=== PATIENT | female | born 1940 | race Caucasian/White ===

== ENCOUNTER → 2017-03-22 | Outpatient (REF) | payer MEDICARE, OTHER ==
[~2017-03-22] MED LIST: /MOXI40TA PO; ASPI81TA21 PO; CRES5TAB PO; LATA0.00 OU; LOSA50TA20 PO; MULTTAB4 PO; NEXI40GR PO; TYLE325T5 PO
== END ==
LOC: M LAB REF 16:32
PROVIDERS: ATTEND Internal Medicine Gastroenterology
DX: R19.7 Diarrhea, unspecified (principal)

== ENCOUNTER → 2017-03-25 | Outpatient (REF) | payer MEDICARE, OTHER | LOC: M LAB REF 17:06 | PROVIDERS: ATTEND Internal Medicine Gastroenterology | DX: R19.7 Diarrhea, unspecified (principal) ==

== ENCOUNTER → 2017-04-30 | Outpatient (REF) | payer MEDICARE, OTHER ==
[2017-04-30 14:18] LABS: MEAN CORPUSCULAR HEMOGLOBIN 29.6 pg (27.0-33.0); MEAN CORPUSCULAR HGB CONC 32.4 g/dl (32.0-36.5); MEAN CORPUSCULAR VOLUME 91.3 fl (80.0-96.0); PLATELET COUNT, AUTOMATED 317 10^3/uL (150-450); RED CELL DISTRIBUTION WIDTH 14.1 % (11.5-14.5); WHITE BLOOD COUNT 7.3 10^3/uL (4.0-10.0)
[2017-04-30 14:38] LABS: ALBUMIN 4.3 GM/DL (3.2-5.2); ALBUMIN/GLOBULIN RATIO 1.43 (1.00-1.93); ALKALINE PHOSPHATASE 80 U/L (45-117); ALT/SGPT 23 U/L (12-78); ANION GAP 8 MEQ/L (8-16); AST/SGOT 15 U/L (7-37); BILIRUBIN,TOTAL 0.8 MG/DL (0.2-1.0); BLOOD UREA NITROGEN 16 MG/DL (7-18); CALCIUM LEVEL 9.5 MG/DL (8.8-10.2); CARBON DIOXIDE LEVEL 28 MEQ/L (21-32); CHLORIDE LEVEL 103 MEQ/L (98-107); CREATININE FOR GFR 1.01 MG/DL (0.55-1.02); GLOMERULAR FILTRATION RATE 56.9 (>39); GLUCOSE, FASTING 100 MG/DL (83-110); MAGNESIUM LEVEL 2.1 MG/DL (1.8-2.4); POTASSIUM SERUM 3.4 MEQ/L (3.5-5.1); SODIUM LEVEL 139 MEQ/L (136-145); TOTAL PROTEIN 7.3 GM/DL (6.4-8.2)
[2017-05-04 00:06] LABS: ANTI-SACCHAROMYCES CEREV. IgA <20.0 Units (0.0-24.9); ANTI-SACCHAROMYCES CEREV. IgG <20.0 Units (0.0-24.9)
== END ==
LOC: M LABNEURO 13:30
PROVIDERS: ATTEND Internal Medicine Gastroenterology
DX: E55.9 Vitamin D deficiency, unspecified (principal); K21.9 Gastro-esophageal reflux disease without esophagitis; R19.7 Diarrhea, unspecified

== ENCOUNTER → 2017-05-28 | Outpatient (REF) | payer MEDICARE, OTHER ==
[2017-05-28 18:12] LABS: ALBUMIN 4.1 GM/DL (3.2-5.2); ALBUMIN/GLOBULIN RATIO 1.37 (1.00-1.93); BILIRUBIN,DIRECT 0.2 MG/DL (0.0-0.2); BILIRUBIN,TOTAL 0.7 MG/DL (0.2-1.0); TOTAL PROTEIN 7.1 GM/DL (6.4-8.2)
== END ==
LOC: M LABNEURO 14:02
PROVIDERS: ATTEND Internal Medicine Gastroenterology
DX: R19.7 Diarrhea, unspecified (principal); K57.30 Diverticulosis of large intestine without perforation or abscess without bleeding; R07.9 Chest pain, unspecified; K22.8 Other specified diseases of esophagus

== ENCOUNTER → 2017-06-07 | Outpatient (CLI) | payer MEDICARE, OTHER | LOC: M RAD 07:44 | DX: R19.7 Diarrhea, unspecified (principal) | CPT/HCPCS: J2805 ==

== ENCOUNTER → 2017-06-17 | Outpatient (CLI) | payer MEDICARE, OTHER | LOC: M RAD 07:50 | DX: R19.7 Diarrhea, unspecified (principal); R10.84 Generalized abdominal pain; K52.9 Noninfective gastroenteritis and colitis, unspecified | CPT/HCPCS: 93975 ==

== ENCOUNTER → 2017-08-21 | Outpatient (CLI) | payer MEDICARE, OTHER | LOC: M RAD 08:49 | DX: M46.90 Unspecified inflammatory spondylopathy, site unspecified (principal) | CPT/HCPCS: 72100 ==

== ENCOUNTER → 2017-08-27 | Outpatient (CLI) | payer MEDICARE, OTHER ==
[~2017-08-27] MED LIST changes: -/MOXI40TA PO; -ASPI81TA21 PO; -CRES5TAB PO; +ISOVUE-370 76% 100ML VIAL (Q9967) As Ordered; -LATA0.00 OU; -LOSA50TA20 PO; -MULTTAB4 PO; -NEXI40GR PO; -TYLE325T5 PO
== END ==
LOC: M RAD 08:04
DX: R10.9 Unspecified abdominal pain (principal); R19.7 Diarrhea, unspecified
CPT/HCPCS: Q9967

== ENCOUNTER → 2017-08-28 | Outpatient (REF) | payer MEDICARE, OTHER ==
[2017-08-28 14:10] LABS: INR 0.92; PROTHROMBIN TIME 12.4 SECONDS (12.4-14.5)
[2017-08-28 14:11] LABS: PARTIAL THROMBOPLASTIN TIME 32.7 SECONDS (26.8-37.9)
== END ==
LOC: M LAB REF 12:59
DX: R19.09 Other intra-abdominal and pelvic swelling, mass and lump (principal)
CPT/HCPCS: 85610

== ENCOUNTER → 2017-08-29 | Outpatient (CLI) | payer MEDICARE, OTHER ==
[~2017-08-29] MED LIST changes: +ACETAMINOPHEN 325 MG TAB As Ordered; -ISOVUE-370 76% 100ML VIAL (Q9967) As Ordered; +LIDOCAINE 1% MDV 20ML VIAL As Ordered
== END ==
LOC: M RADPRO 13:20
DX: R19.09 Other intra-abdominal and pelvic swelling, mass and lump (principal); C77.2 Secondary and unspecified malignant neoplasm of intra-abdominal lymph nodes; Z79.82 Long term (current) use of aspirin; Z79.899 Other long term (current) drug therapy; Z88.8 Allergy status to other drugs, medicaments and biological substances
CPT/HCPCS: 49180

== ENCOUNTER 2017-08-30 17:30 | Emergency (ER) | payer MEDICARE, OTHER ==
[2017-08-30] MEDS: ONDANSETRON 4MG/2ML VIAL (J2405) IV (19:29)
[2017-08-30] MEDS: MORPHINE 4 MG/ML 1ML VIAL (J2270) IV (19:31)
[2017-08-30] MEDS: NS 1,000 ML IV (19:34)
[2017-08-30 19:37] LABS: BASO % 0.8 % (0.0-1.0); EOS # 0.1 10^3/uL (0.0-0.50); EOS % 1.2 % (0.0-3.0); HEMATOCRIT 34.6 % (36.0-47.0); HEMOGLOBIN 11.5 g/dl (12.0-16.0); IMMATURE GRANULOCYTE % 0.2 % (0-3.0); LYMPH # 1.1 10^3/uL (1.5-4.5); LYMPH % 21.1 % (24.0-44.0); MEAN CORPUSCULAR HGB CONC 33.2 g/dl (32.0-36.5); MEAN CORPUSCULAR VOLUME 87.2 fl (80.0-96.0); MONO # 0.4 10^3/uL (0.0-0.8); MONO % 7.4 % (0.0-5.0); NEUTROPHILS # 3.6 10^3/uL (1.8-7.7); NEUTROPHILS % 69.3 % (36.0-66.0); PLATELET COUNT, AUTOMATED 186 10^3/uL (150-450); RED BLOOD COUNT 3.97 10^6/uL (4.00-5.40); RED CELL DISTRIBUTION WIDTH 15.2 % (11.5-14.5); WHITE BLOOD COUNT 5.2 10^3/uL (4.0-10.0)
[2017-08-30] MEDS ORDERED: ISOVUE-370 76% 100ML VIAL (Q9967) As Ordered (19:49)
[2017-08-30 19:53] LABS: ALBUMIN 3.2 GM/DL (3.2-5.2); ALBUMIN/GLOBULIN RATIO 1.14 (1.00-1.93); ALKALINE PHOSPHATASE 74 U/L (45-117); ALT/SGPT 24 U/L (12-78); ANION GAP 7 MEQ/L (8-16); AST/SGOT 24 U/L (7-37); BILIRUBIN,DIRECT 0.1 MG/DL (0.0-0.2); BILIRUBIN,TOTAL 0.5 MG/DL (0.2-1.0); BLOOD UREA NITROGEN 21 MG/DL (7-18); CALCIUM LEVEL 8.7 MG/DL (8.8-10.2); CARBON DIOXIDE LEVEL 26 MEQ/L (21-32); CHLORIDE LEVEL 105 MEQ/L (98-107); CREATININE FOR GFR 0.96 MG/DL (0.55-1.30); GLOMERULAR FILTRATION RATE > 60.0 (>39); GLUCOSE, FASTING 92 MG/DL (70-100); LIPASE 126 U/L (73-393); SODIUM LEVEL 138 MEQ/L (136-145)
[2017-08-30 20:00] LABS: INR 0.84; PROTHROMBIN TIME 11.6 SECONDS (12.4-14.5)
[2017-08-30] MEDS: NORCO 5/325MG TABLET (BULK FOR ED) PO (22:33)
== END 2017-08-30 22:46 | disposition home or self-care (01) ==
LOC: M ED 17:30
DX: G89.28 Other chronic postprocedural pain (principal); K86.9 Disease of pancreas, unspecified; I51.9 Heart disease, unspecified; Z79.899 Other long term (current) drug therapy; Z79.82 Long term (current) use of aspirin; Z79.52 Long term (current) use of systemic steroids; Z88.8 Allergy status to other drugs, medicaments and biological substances
CPT/HCPCS: J2270

== ENCOUNTER → 2017-09-20 | Outpatient (CLI) | payer MEDICARE, OTHER ==
[~2017-09-20] MED LIST changes: -ACETAMINOPHEN 325 MG TAB As Ordered; -LIDOCAINE 1% MDV 20ML VIAL As Ordered; +PROHANCE 279.3MG/ML 5ML VIAL (A9576) As Ordered
== END ==
LOC: M RAD 16:14
DX: C25.9 Malignant neoplasm of pancreas, unspecified (principal); C78.00 Secondary malignant neoplasm of unspecified lung; Z79.51 Long term (current) use of inhaled steroids
CPT/HCPCS: A9576

== ENCOUNTER → 2017-09-23 | Outpatient (CLI) | payer MEDICARE, OTHER ==
[~2017-09-23] MED LIST changes: +ISOVUE-370 76% 100ML VIAL (Q9967) As Ordered; -PROHANCE 279.3MG/ML 5ML VIAL (A9576) As Ordered
== END ==
LOC: M RAD 07:47
DX: C25.9 Malignant neoplasm of pancreas, unspecified (principal); C78.00 Secondary malignant neoplasm of unspecified lung
CPT/HCPCS: Q9967

== ENCOUNTER 2017-10-05 10:15 | Emergency (ER) | payer MEDICARE, OTHER ==
[2017-10-05] MEDS: NS 1,000 ML IV ×2 (11:15)
[2017-10-05] MEDS: SODIUM CHLORIDE 0.9% INJ 10 ML SYR IV ×2 (11:18)
== END 2017-10-05 12:46 | disposition home or self-care (01) ==
LOC: M ED 10:15
DX: E86.0 Dehydration (principal); C25.9 Malignant neoplasm of pancreas, unspecified; Z88.8 Allergy status to other drugs, medicaments and biological substances; Z79.899 Other long term (current) drug therapy; Z79.82 Long term (current) use of aspirin; Z79.891 Long term (current) use of opiate analgesic
CPT/HCPCS: 96360; 99284

== ENCOUNTER → 2017-10-07 | Outpatient (REF) | payer MEDICARE, OTHER ==
[2017-10-07 09:44] LABS: BASO % 0.4 % (0.0-1.0); EOS % 0.8 % (0.0-3.0); HEMATOCRIT 31.8 % (36.0-47.0); HEMOGLOBIN 10.5 g/dl (12.0-15.5); IMMATURE GRANULOCYTE % 0.6 % (0-3.0); LYMPH # 1.7 10^3/uL (1.5-4.5); LYMPH % 34.8 % (24.0-44.0); MEAN CORPUSCULAR HEMOGLOBIN 29.4 pg (27.0-33.0); MEAN CORPUSCULAR VOLUME 89.1 fl (80.0-96.0); MONO # 0.3 10^3/uL (0.0-0.8); NEUTROPHILS # 2.8 10^3/uL (1.8-7.7); NEUTROPHILS % 57.4 % (36.0-66.0); PLATELET COUNT, AUTOMATED 121 10^3/uL (150-450); RED BLOOD COUNT 3.57 10^6/uL (4.00-5.40); RED CELL DISTRIBUTION WIDTH 14.7 % (11.5-14.5); WHITE BLOOD COUNT 4.9 10^3/uL (4.0-10.0)
[2017-10-07 12:52] LABS: ALBUMIN 2.8 GM/DL (3.2-5.2); ALBUMIN/GLOBULIN RATIO 1.04 (1.00-1.93); ALKALINE PHOSPHATASE 96 U/L (45-117); ALT/SGPT 27 U/L (12-78); ANION GAP 7 MEQ/L (8-16); AST/SGOT 23 U/L (7-37); BILIRUBIN,TOTAL 0.4 MG/DL (0.2-1.0); BLOOD UREA NITROGEN 10 MG/DL (7-18); CALCIUM LEVEL 8.1 MG/DL (8.8-10.2); CARBON DIOXIDE LEVEL 23 MEQ/L (21-32); CHLORIDE LEVEL 109 MEQ/L (98-107); CREATININE FOR GFR 0.72 MG/DL (0.55-1.30); GLOMERULAR FILTRATION RATE > 60.0 (>39); GLUCOSE, FASTING 111 MG/DL (70-100); SODIUM LEVEL 139 MEQ/L (136-145); TOTAL PROTEIN 5.5 GM/DL (6.4-8.2)
== END ==
LOC: M LABNEURO 09:35
DX: C25.9 Malignant neoplasm of pancreas, unspecified (principal); C78.00 Secondary malignant neoplasm of unspecified lung
CPT/HCPCS: 80053

== ENCOUNTER 2017-10-11 16:14 | Emergency (ER) | payer MEDICARE, OTHER ==
[2017-10-11] MEDS: NS 1,000 ML IV (16:45)
[2017-10-11 17:09] LABS: BASO % 0.3 % (0.0-1.0); EOS # 0.1 10^3/uL (0.0-0.50); HEMATOCRIT 27.8 % (36.0-47.0); HEMOGLOBIN 9.3 g/dl (12.0-15.5); IMMATURE GRANULOCYTE % 0.6 % (0-3.0); LYMPH # 0.6 10^3/uL (1.5-4.5); LYMPH % 16.3 % (24.0-44.0); MEAN CORPUSCULAR HEMOGLOBIN 29.5 pg (27.0-33.0); MEAN CORPUSCULAR HGB CONC 33.5 g/dl (32.0-36.5); MEAN CORPUSCULAR VOLUME 88.3 fl (80.0-96.0); MONO % 0.9 % (0.0-5.0); NEUTROPHILS # 2.8 10^3/uL (1.8-7.7); NEUTROPHILS % 79.9 % (36.0-66.0); RED BLOOD COUNT 3.15 10^6/uL (4.00-5.40); WHITE BLOOD COUNT 3.5 10^3/uL (4.0-10.0)
[2017-10-11 17:38] LABS: ALBUMIN 2.9 GM/DL (3.2-5.2); ALBUMIN/GLOBULIN RATIO 1.04 (1.00-1.93); ALKALINE PHOSPHATASE 86 U/L (45-117); ALT/SGPT 20 U/L (12-78); ANION GAP 8 MEQ/L (8-16); AST/SGOT 16 U/L (7-37); BILIRUBIN,DIRECT 0.2 MG/DL (0.0-0.2); BILIRUBIN,TOTAL 0.6 MG/DL (0.2-1.0); BLOOD UREA NITROGEN 13 MG/DL (7-18); CALCIUM LEVEL 7.9 MG/DL (8.8-10.2); CARBON DIOXIDE LEVEL 22 MEQ/L (21-32); CHLORIDE LEVEL 109 MEQ/L (98-107); CPK CREATINE PHOSPHOKINASE 29 U/L (26-192); CREATININE FOR GFR 0.69 MG/DL (0.55-1.30); FREE T4 1.43 NG/DL (0.76-1.46); GLOMERULAR FILTRATION RATE > 60.0 (>39); GLUCOSE, FASTING 119 MG/DL (70-100); POTASSIUM SERUM 3.4 MEQ/L (3.5-5.1); SODIUM LEVEL 139 MEQ/L (136-145); TOTAL PROTEIN 5.7 GM/DL (6.4-8.2); TROPONIN I 0.03 NG/ML (< 0.10)
[2017-10-11 17:44] LABS: CK-MB VALUE MASS < 1.0 NG/ML (<3.6); MB/CK RELATIVE INDEX 3.44 (< OR =4)
[2017-10-11] MEDS: ALBUTEROL SULFATE 2.5 MG/0.5 ML INH NEB SOLN INH (17:46)
[2017-10-11] MEDS: IPRATROPIUM 0.5MG/ALBUTEROL 2.5MG INH SOL UD 3ML (DUONEB)(J7620) NEB (17:47)
[2017-10-11 18:00] LABS: PLATELET COUNT, AUTOMATED 129 10^3/uL (150-450); POS COUNT POS FLAG
[2017-10-11] MEDS: ALBUTEROL 90 MCG/ACT 8GM HFA INHALER INH (18:15)
[2017-10-11] MEDS: MOXIFLOXACIN 400 MG TAB PO (18:15)
== END 2017-10-11 18:35 | disposition home or self-care (01) ==
LOC: M ED 16:14
DX: H66.91 Otitis media, unspecified, right ear (principal); J40 Bronchitis, not specified as acute or chronic; R94.31 Abnormal electrocardiogram [ECG] [EKG]; I10 Essential (primary) hypertension; E78.5 Hyperlipidemia, unspecified; E07.9 Disorder of thyroid, unspecified; Z79.899 Other long term (current) drug therapy; Z79.82 Long term (current) use of aspirin; Z79.890 Hormone replacement therapy; Z98.890 Other specified postprocedural states; Z88.8 Allergy status to other drugs, medicaments and biological substances; Z85.07 Personal history of malignant neoplasm of pancreas
CPT/HCPCS: 71046

== ENCOUNTER 2017-10-15 12:33 | Outpatient (CLI) | payer MEDICARE, OTHER ==
[2017-10-15] MEDS: NS 1,000 ML IV (12:53)
[2017-10-15] MEDS: SODIUM CHLORIDE 0.9% INJ 10 ML SYR IV (14:58)
== END 2017-10-15 15:05 | disposition home or self-care (01) ==
LOC: M INFU 12:33
DX: C25.9 Malignant neoplasm of pancreas, unspecified (principal); C78.00 Secondary malignant neoplasm of unspecified lung; K57.30 Diverticulosis of large intestine without perforation or abscess without bleeding; D64.9 Anemia, unspecified; M17.9 Osteoarthritis of knee, unspecified; I25.9 Chronic ischemic heart disease, unspecified; Z79.891 Long term (current) use of opiate analgesic; Z79.899 Other long term (current) drug therapy; Z88.8 Allergy status to other drugs, medicaments and biological substances; Z85.42 Personal history of malignant neoplasm of other parts of uterus; Z86.79 Personal history of other diseases of the circulatory system
CPT/HCPCS: 96360

== ENCOUNTER → 2017-10-17 | Outpatient (CLI) | payer MEDICARE, OTHER | LOC: M RAD 09:26 | DX: R05 Cough (principal); C25.9 Malignant neoplasm of pancreas, unspecified; C78.00 Secondary malignant neoplasm of unspecified lung; J90 Pleural effusion, not elsewhere classified | CPT/HCPCS: 71046 ==

== ENCOUNTER → 2017-10-23 | Outpatient (CLI) | payer MEDICARE, OTHER | LOC: M RAD 07:28 | DX: R07.9 Chest pain, unspecified (principal) | CPT/HCPCS: Q9967 ==

== ENCOUNTER 2017-10-24 13:54 | Outpatient (CLI) | payer MEDICARE, OTHER ==
[2017-10-24] MEDS: NS 1,000 ML IV (14:20)
[2017-10-24] MEDS: SODIUM CHLORIDE 0.9% INJ 10 ML SYR IV (16:30)
== END 2017-10-24 16:35 | disposition home or self-care (01) ==
LOC: M INFU 13:54
DX: C25.9 Malignant neoplasm of pancreas, unspecified (principal); C78.00 Secondary malignant neoplasm of unspecified lung; I10 Essential (primary) hypertension; E78.00 Pure hypercholesterolemia, unspecified; K21.9 Gastro-esophageal reflux disease without esophagitis; D64.9 Anemia, unspecified; M12.9 Arthropathy, unspecified; F41.9 Anxiety disorder, unspecified; Z79.82 Long term (current) use of aspirin; Z79.891 Long term (current) use of opiate analgesic; Z79.899 Other long term (current) drug therapy; Z88.8 Allergy status to other drugs, medicaments and biological substances; Z90.710 Acquired absence of both cervix and uterus
CPT/HCPCS: 96360

== ENCOUNTER → 2017-11-12 | Outpatient (REF) | payer MEDICARE, OTHER ==
[2017-11-12 11:47] LABS: BASO % 0.4 % (0.0-1.0); EOS # 0.1 10^3/uL (0.0-0.50); EOS % 1.1 % (0.0-3.0); HEMATOCRIT 28.4 % (36.0-47.0); HEMOGLOBIN 9.1 g/dl (12.0-15.5); IMMATURE GRANULOCYTE % 1.3 % (0-3.0); LYMPH # 0.7 10^3/uL (1.5-4.5); LYMPH % 14.9 % (24.0-44.0); MEAN CORPUSCULAR HEMOGLOBIN 28.8 pg (27.0-33.0); MEAN CORPUSCULAR VOLUME 89.9 fl (80.0-96.0); MONO # 0.4 10^3/uL (0.0-0.8); MONO % 8.3 % (0.0-5.0); NEUTROPHILS # 3.5 10^3/uL (1.8-7.7); PLATELET COUNT, AUTOMATED 126 10^3/uL (150-450); RED BLOOD COUNT 3.16 10^6/uL (4.00-5.40); RED CELL DISTRIBUTION WIDTH 15.6 % (11.5-14.5); WHITE BLOOD COUNT 4.7 10^3/uL (4.0-10.0)
== END ==
LOC: M LABNEURO 11:21
DX: C25.9 Malignant neoplasm of pancreas, unspecified (principal); C78.00 Secondary malignant neoplasm of unspecified lung
CPT/HCPCS: 85025

== ENCOUNTER → 2017-11-20 | Outpatient (REF) | payer MEDICARE, OTHER ==
[2017-11-22 15:03] LABS: IMMEDIATE SPIN CROSSMATCH 1 2
== END ==
LOC: M LAB REF 11:43
DX: D64.9 Anemia, unspecified (principal)
CPT/HCPCS: 86900

== ENCOUNTER 2017-11-22 09:11 | Outpatient (CLI) | payer MEDICARE, OTHER ==
[2017-11-22] MEDS: diphenhydrAMINE 25 MG CAP PO (12:17)
[2017-11-22] MEDS: ACETAMINOPHEN TAB 650MG DOSE (2X325MG) PO (12:18)
== END 2017-11-22 18:48 | disposition home or self-care (01) ==
LOC: M OPCLI5PR 09:11 → M MS5PR 09:30 → M OPCLI5PR 18:48
DX: D64.9 Anemia, unspecified (principal); Z88.8 Allergy status to other drugs, medicaments and biological substances
CPT/HCPCS: 36430

== ENCOUNTER → 2017-12-10 | Outpatient (CLI) | payer MEDICARE, OTHER ==
[~2017-12-10] MED LIST changes: +GASTROGRAFIN SOLUTION 30ML (Q9963) As Ordered
== END ==
LOC: M RAD 12:23
DX: C25.9 Malignant neoplasm of pancreas, unspecified (principal)
CPT/HCPCS: Q9963

== ENCOUNTER → 2018-01-08 | Outpatient (REF) | payer MEDICARE, OTHER | LOC: M LAB REF 09:50 | DX: R19.7 Diarrhea, unspecified (principal) | CPT/HCPCS: 83630 ==

== ENCOUNTER 2018-01-21 09:15 | Emergency (ER) | payer MEDICARE, OTHER ==
[2018-01-21] MEDS: NS 1,000 ML IV (09:36)
[2018-01-21 10:29] LABS: BASO % 0.2 % (0.0-1.0); EOS % 0.2 % (0.0-3.0); HEMATOCRIT 39.4 % (36.0-47.0); HEMOGLOBIN 12.8 g/dl (12.0-15.5); IMMATURE GRANULOCYTE % 0.3 % (0-3.0); LYMPH # 0.8 10^3/uL (1.5-4.5); LYMPH % 6.9 % (24.0-44.0); MEAN CORPUSCULAR HEMOGLOBIN 28.3 pg (27.0-33.0); MEAN CORPUSCULAR HGB CONC 32.5 g/dl (32.0-36.5); MONO # 0.9 10^3/uL (0.0-0.8); MONO % 7.5 % (0.0-5.0); NEUTROPHILS # 9.6 10^3/uL (1.8-7.7); NEUTROPHILS % 84.9 % (36.0-66.0); PLATELET COUNT, AUTOMATED 156 10^3/uL (150-450); RED BLOOD COUNT 4.53 10^6/uL (4.00-5.40); RED CELL DISTRIBUTION WIDTH 17.4 % (11.5-14.5); WHITE BLOOD COUNT 11.3 10^3/uL (4.0-10.0)
[2018-01-21 10:44] LABS: INR 1.01; PROTHROMBIN TIME 13.4 SECONDS (12.1-14.4)
[2018-01-21 10:55] LABS: ALBUMIN 3.4 GM/DL (3.2-5.2); ALKALINE PHOSPHATASE 91 U/L (45-117); ALT/SGPT 26 U/L (12-78); ANION GAP 8 MEQ/L (8-16); AST/SGOT 24 U/L (7-37); BILIRUBIN,DIRECT 0.1 MG/DL (0.0-0.2); BILIRUBIN,TOTAL 0.5 MG/DL (0.2-1.0); BLOOD UREA NITROGEN 12 MG/DL (7-18); CALCIUM LEVEL 8.8 MG/DL (8.8-10.2); CARBON DIOXIDE LEVEL 27 MEQ/L (21-32); CHLORIDE LEVEL 103 MEQ/L (98-107); CREATININE FOR GFR 0.72 MG/DL (0.55-1.30); GLOMERULAR FILTRATION RATE > 60.0 (>39); GLUCOSE, FASTING 126 MG/DL (70-100); LIPASE 47 U/L (73-393); POTASSIUM SERUM 3.2 MEQ/L (3.5-5.1); SODIUM LEVEL 138 MEQ/L (136-145); TOTAL PROTEIN 6.8 GM/DL (6.4-8.2)
[2018-01-21] MEDS: POTASSIUM CHLORIDE 10 MEQ SR TABLET PO ×2 (11:14→16:45)
[2018-01-21] MEDS: GASTROGRAFIN SOLUTION 30ML PO ×2 (11:30→12:30)
[2018-01-21] MEDS: ONDANSETRON 4MG/2ML VIAL (J2405) IV (11:38)
[2018-01-21] MEDS: MORPHINE 4 MG/ML 1ML VIAL/SYRINGE (J2270) IV ×3 (11:44→16:45)
[2018-01-21] MEDS ORDERED: ISOVUE-370 76% 100ML VIAL (Q9967) As Ordered (12:45)
[2018-01-21 15:37] LABS: KETONE, URINE AUTO RFX NEGATIVE (NEGATIVE); NITRITE, URINE AUTO RFX NEGATIVE (NEGATIVE); RBC, URINE AUTO RFX 1 /HPF (0-3); SPECIFIC GRAVITY UR AUTO RFX 1.033 (1.002-1.035); SQUAM EPITHELIAL CELL UR AURFX 0 /HPF (0-6); WBC, URINE AUTO RFX 1 /HPF (0-3)
[2018-01-21] MEDS: NORCO, ANEXSIA 5/325MG TABLET (HYDROcodone/ACETAMINOPHEN) PO (15:40)
[2018-01-21 16:26] LABS: LEUKOCYTE ESTERASE UR AUTO RFX 1+ (NEGATIVE)
== END 2018-01-21 17:19 | disposition home or self-care (01) ==
LOC: M ED 09:15
DX: E87.6 Hypokalemia (principal); R10.31 Right lower quadrant pain; R11.0 Nausea; R19.7 Diarrhea, unspecified; J90 Pleural effusion, not elsewhere classified; I10 Essential (primary) hypertension; H40.9 Unspecified glaucoma; Z85.07 Personal history of malignant neoplasm of pancreas; Z87.19 Personal history of other diseases of the digestive system; Z79.899 Other long term (current) drug therapy; Z79.82 Long term (current) use of aspirin; Z79.890 Hormone replacement therapy; Z88.8 Allergy status to other drugs, medicaments and biological substances
CPT/HCPCS: J2270

== ENCOUNTER → 2018-01-24 | Outpatient (REF) | payer MEDICARE, OTHER ==
[2018-01-24 10:49] LABS: HEMATOCRIT 32.9 % (36.0-47.0); HEMOGLOBIN 10.6 g/dl (12.0-15.5); MEAN CORPUSCULAR HGB CONC 32.2 g/dl (32.0-36.5); PLATELET COUNT, AUTOMATED 132 10^3/uL (150-450); RED BLOOD COUNT 3.78 10^6/uL (4.00-5.40); RED CELL DISTRIBUTION WIDTH 17.4 % (11.5-14.5); WHITE BLOOD COUNT 9.4 10^3/uL (4.0-10.0)
[2018-01-24 11:15] LABS: TOTAL 25(OH) VITAMIN D 25.6 NG/ML (30.0-100.0); VITAMIN B12 LEVEL 1452 PG/ML (247-911)
[2018-01-24 11:18] LABS: ALBUMIN 2.9 GM/DL (3.2-5.2); ALBUMIN/GLOBULIN RATIO 1.07 (1.00-1.93); ALKALINE PHOSPHATASE 125 U/L (45-117); ALT/SGPT 25 U/L (12-78); ANION GAP 8 MEQ/L (8-16); AST/SGOT 20 U/L (7-37); BILIRUBIN,TOTAL 0.5 MG/DL (0.2-1.0); BLOOD UREA NITROGEN 12 MG/DL (7-18); C REACTIVE PROTEIN QUANTITATIV 2.13 MG/DL (0.00-0.30); CALCIUM LEVEL 8.3 MG/DL (8.8-10.2); CARBON DIOXIDE LEVEL 26 MEQ/L (21-32); CHLORIDE LEVEL 104 MEQ/L (98-107); CHOLESTEROL LEVEL 111 MG/DL (<200); CREATININE FOR GFR 0.61 MG/DL (0.55-1.30); GLOMERULAR FILTRATION RATE > 60.0 (>39); GLUCOSE, FASTING 112 MG/DL (70-100); HDL CHOLESTEROL 60 MG/DL (>40); LDL CHOLESTEROL 24.2 MG/DL (<100); NON-HDL-C 51 MG/DL; POTASSIUM SERUM 3.3 MEQ/L (3.5-5.1); SODIUM LEVEL 138 MEQ/L (136-145); TOTAL PROTEIN 5.6 GM/DL (6.4-8.2); TRIGLYCERIDES LEVEL 134 MG/DL (<150)
[2018-01-24 11:21] LABS: LACTIC ACID SEPSIS PROTOCOL 2.2 MMOL/L (0.4-2.0)
== END ==
LOC: M LABDRAWP 10:22
DX: R10.31 Right lower quadrant pain (principal); R10.32 Left lower quadrant pain; R10.84 Generalized abdominal pain; Z85.00 Personal history of malignant neoplasm of unspecified digestive organ; K52.9 Noninfective gastroenteritis and colitis, unspecified; E07.9 Disorder of thyroid, unspecified; E78.00 Pure hypercholesterolemia, unspecified
CPT/HCPCS: 84443

== ENCOUNTER → 2018-01-29 | Outpatient (CLI) | payer MEDICARE, OTHER | LOC: M RAD 07:05 | DX: K52.9 Noninfective gastroenteritis and colitis, unspecified (principal); R10.31 Right lower quadrant pain; R10.32 Left lower quadrant pain; R10.84 Generalized abdominal pain; Z85.00 Personal history of malignant neoplasm of unspecified digestive organ | CPT/HCPCS: 76705 ==

== ENCOUNTER → 2018-03-14 | Outpatient (CLI) | payer MEDICARE, OTHER | LOC: M RAD 16:31 | DX: C25.9 Malignant neoplasm of pancreas, unspecified (principal); R18.8 Other ascites | CPT/HCPCS: Q9963 ==

== ENCOUNTER → 2018-06-23 | Outpatient (CLI) | payer MEDICARE, OTHER ==
[~2018-06-23] MED LIST changes: +/MOXI40TA PO; +AMLO10TA5 PO; +ASPI81TA21 PO; +AVEL1TAB3 PO; +CREO24CA PO; +CRES5TAB PO; -GASTROGRAFIN SOLUTION 30ML (Q9963) As Ordered; +GASTROGRAFIN SOLUTION 30ML (Q9963) As Ordered ONE; +HYDR-3713 PO; +IMOD2CAP PO; -ISOVUE-370 76% 100ML VIAL (Q9967) As Ordered; +ISOVUE-370 76% 100ML VIAL (Q9967) As Ordered ONE; +LASI20TA3 PO; +LATA0.00 OU; +LEVO30TA PO; +LIPI20TA PO; +LOMO2.5T PO; +LOSA50TA20 PO; +METO1TAB87 PO; +MORP15TASA PO; +MULTTAB4 PO; +NEXI40GR PO; +NORCOTAB PO; +OMEP40CA2 PO; +PRED10TA2; +PRED10TA2 PO; +TOPR50TA23 PO; +TYLE325T5 PO; +XANA0.5T PO; +ZOFR4TAB14 PO
== END ==
LOC: M RAD 10:58
PROVIDERS: ATTEND Internal Medicine Hematology & Oncology
DX: C25.9 Malignant neoplasm of pancreas, unspecified (principal); C78.00 Secondary malignant neoplasm of unspecified lung

== ENCOUNTER → 2018-06-25 | Outpatient (CLI) | payer MEDICARE, OTHER ==
[~2018-06-25] MED LIST changes: +EMLA CREAM 5GM (LIDOCAINE/PRILOCAINE) As Ordered ONE
--- NOTE | 2018-06-25 18:25 | REP ---
CT study of the chest with IV contrast: History: Pancreatic carcinoma. Restaging. Comparison chest CT study March [address] findings: There are moderate bilateral pleural effusions which have increased in the interval since the prior study. There is no evidence of pulmonary embolus or thoracic aortic dissection or aneurysm. There is multifocal parietal pleural nodularity with enhancing tumor implants. Periaortic and paravertebral neoplastic enhancing nodules are seen similar to the prior study but slightly more pronounced. There are small right hilar and subcarinal lymph nodes which are stable from the prior study. A right pretracheal lymph node is seen unchanged. Small AP window region lymph nodes are noted essentially unchanged. There is left supraclavicular lymphadenopathy visible today containing a few punctate calcifications. This is unchanged. A right-sided Icydti-U-Fowu catheter is noted. No bony destructive lesion is seen. Size and number of the pulmonary parenchymal metastatic nodules have decreased in the interval since the March 14, 2018 study. The largest nodular densities in the right lower lobe and left lower lobe are probably essentially unchanged. There is some increased volume loss in the lower lobes because of the pleural effusion. Impression: Increased pleural effusions bilaterally now moderate. Nodular areas of pleural enhancement is slightly increased. The number and size of the pulmonary mets appear to have decreased. Mediastinal and hilar nodes are unchanged. Electronically Signed by James Carrillo MD 06/25/2018 07:47 P
--- NOTE | 2018-06-25 18:57 | REP ---
CT abdomen and pelvis with IV and oral contrast: History: Pancreatic carcinoma. Restaging. Comparison CT study March 19, 2018. CT contrast dose: 100 ml of intravenous Isovue 370 is administered. Findings: There are moderate bilateral pleural effusions increased in size from the March 14, 2018 study. There is mild to moderate diffuse intra-abdominal ascites. This is also somewhat increased. No focal liver mass lesion is observed. No adrenal lesion is seen. There is a mass in the body of the pancreas which envelopes the superior mesenteric artery as before. This measures 4.1 cm in AP dimension as before. 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 Venous collaterals are noted in the upper abdomen fairly extensively. No splenic lesion is seen. There is a retroperitoneal lymphadenopathy some of which contains calcium calcification. This is fairly bulky but essentially unchanged. There is more calcium deposition and some of the left retroperitoneal and right retroperitoneal lymphadenopathy. There are numerous tiny small bowel mesenteric lymph nodes but these are unchanged. A filling defect is suggested in the common iliac vein and external iliac vein on the right which may reflect thrombosis. Similar changes in the external and common femoral vein on the left are again seen. Kidneys enhance symmetrically and are somewhat atrophic. There is evidence of sclerotic metastatic disease involving L2 and T10. The changes at L2 have become more extensive although they remain sclerotic. No lytic metastasis is seen. The paravertebral disease at T10 may be slightly more prominent. There is a degenerative spondylolisthesis at L4-5 again noted. Impression: Increase in the amount of ascites and bilateral pleural fluid in the interval since the prior study. Extensive retroperitoneal adenopathy and pancreatic mass essentially unchanged. Progressive metastatic sclerotic change at L2 and some increase in the paravertebral disease at T10. No new bony mets metastatic lesions seen. Electronically Signed by James Carrillo MD 06/25/2018 07:48 P
== END ==
LOC: M RAD 15:49
PROVIDERS: ATTEND Internal Medicine Hematology & Oncology
DX: C25.9 Malignant neoplasm of pancreas, unspecified (principal); C78.01 Secondary malignant neoplasm of right lung; C78.02 Secondary malignant neoplasm of left lung; J90 Pleural effusion, not elsewhere classified; C79.51 Secondary malignant neoplasm of bone; R18.8 Other ascites
CPT/HCPCS: 71260; 74177; Q9963; Q9967

== ENCOUNTER → 2018-07-01 | Outpatient (REF) | payer MEDICARE, OTHER ==
[~2018-07-01] MED LIST changes: -EMLA CREAM 5GM (LIDOCAINE/PRILOCAINE) As Ordered ONE; -GASTROGRAFIN SOLUTION 30ML (Q9963) As Ordered ONE; -ISOVUE-370 76% 100ML VIAL (Q9967) As Ordered ONE
== END ==
LOC: M LAB REF 18:10
PROVIDERS: ATTEND Internal Medicine Hematology & Oncology
DX: R19.7 Diarrhea, unspecified (principal); C78.00 Secondary malignant neoplasm of unspecified lung; C25.9 Malignant neoplasm of pancreas, unspecified

== ENCOUNTER → 2018-07-01 | Outpatient (REF) | payer MEDICARE, OTHER | LOC: M LAB REF 18:13 | PROVIDERS: ATTEND Internal Medicine Gastroenterology | DX: R19.7 Diarrhea, unspecified (principal); C25.9 Malignant neoplasm of pancreas, unspecified; C78.00 Secondary malignant neoplasm of unspecified lung ==

== ENCOUNTER → 2018-08-27 | Outpatient (CLI) | payer MEDICARE, OTHER ==
[~2018-08-27] MED LIST changes: +EMLA CREAM 5GM (LIDOCAINE/PRILOCAINE) As Ordered ONE; +GASTROGRAFIN SOLUTION 30ML (Q9963) As Ordered ONE; +ISOVUE-370 76% 125ML VIAL (Q9967 PER ML) As Ordered ONE
--- NOTE | 2018-08-27 16:28 | REP ---
REASON FOR EXAM: History of pancreatic carcinoma. COMPARISON EXAMINATION: 06/25/2018 CONTRAST: 100 mL Isovue-370. The amount of ascites seen on the prior examination has decreased somewhat. There are unchanged bilateral pleural effusions. The liver and spleen are unchanged. Pancreatic mass with ductal dilatation unchanged. Extensive retroperitoneal /paraaortic adenopathy unchanged. Abdominal aorta unchanged. Kidneys and adrenal glands unchanged. Bowel loops and mesentery unchanged. Sigmoid colon diverticulosis noted status quo. Osseous structures stable with bony metastatic changes and spinal degenerative changes status quo. IMPRESSION: No significant change. Findings as described above. Electronically Signed by Justo Escalera DO 08/27/2018 05:04 P
--- NOTE | 2018-08-27 16:39 | REP ---
HISTORY: Pancreatic cancer. COMPARISON: Multiple, the latest 06/25/2018. CONTRAST: 100 mL Isovue-370. There are bilateral pleural effusions which appear unchanged. No pericardial effusion has developed. Mediastinum and pulmonary jhony are unchanged showing no evidence of a mass or adenopathy. There is no change in the supraclavicular regions. No axillary adenopathy has developed. The tip of the MediPort device is unchanged, remaining in the superior vena cava. Evaluation of the lung noel shows numerable curvilinear and asymmetrical opacities, status quo. More focal irregular and somewhat spiculated nodules seen on the prior exam have decreased in size and density. The number of these nodules has also decreased. Bone window technique throughout the exam shows no change in the appearance of the osseous structures. Note is again made of a blastic lesion involving nearly all of T10. IMPRESSION: There has been some improvement in the appearance of the pulmonary parenchyma as described above. Other findings as described above, appear stable. Electronically Signed by Justo Escalera DO 08/27/2018 05:05 P
== END ==
LOC: M RAD 08:58
PROVIDERS: ATTEND Internal Medicine Hematology & Oncology
DX: C25.9 Malignant neoplasm of pancreas, unspecified (principal); C78.00 Secondary malignant neoplasm of unspecified lung; J90 Pleural effusion, not elsewhere classified; K57.30 Diverticulosis of large intestine without perforation or abscess without bleeding; C79.51 Secondary malignant neoplasm of bone
CPT/HCPCS: 71260; 74177; Q9963; Q9967

== ENCOUNTER 2018-11-28 12:24 | Emergency (ER) | payer MEDICARE, OTHER ==
[~2018-11-28] VITALS: Ht 160 cm; Wt 40.0 kg
[~2018-11-28 12:24] MED LIST changes: -/MOXI40TA PO; +AVEL1TAB2 PO; -EMLA CREAM 5GM (LIDOCAINE/PRILOCAINE) As Ordered ONE; -GASTROGRAFIN SOLUTION 30ML (Q9963) As Ordered ONE; +HYDR-3715 PO; -ISOVUE-370 76% 125ML VIAL (Q9967 PER ML) As Ordered ONE; -NORCOTAB PO; +TOPR50TA PO; -TOPR50TA23 PO
[2018-11-28] MEDS ORDERED: PROC10TA4 (13:23)
[2018-11-28] MEDS ORDERED: PREG25CA PO (13:23)
[2018-11-28] MEDS ORDERED: MORP20SO3 PO (13:23)
[2018-11-28] MEDS ORDERED: MORP1TAB21 (13:23)
[2018-11-28] MEDS ORDERED: ONDA8TAB7 (13:23)
[2018-11-28 15:08] LABS: IONIZED CALCIUM 4.8 MG/DL (4.5-5.3)
[2018-11-28 15:10] LABS: HEMATOCRIT 36.6 % (36.0-47.0); HEMOGLOBIN 11.8 g/dl (12.0-15.5); MEAN CORPUSCULAR HEMOGLOBIN 29.9 pg (27.0-33.0); MEAN CORPUSCULAR HGB CONC 32.2 g/dl (32.0-36.5); MEAN CORPUSCULAR VOLUME 92.9 fl (80.0-96.0); PLATELET COUNT, AUTOMATED 141 10^3/uL (150-450); RED BLOOD COUNT 3.94 10^6/uL (4.00-5.40); WHITE BLOOD COUNT 6.7 10^3/uL (4.0-10.0)
[2018-11-28 15:32] LABS: C REACTIVE PROTEIN QUANTITATIV 2.02 MG/DL (0.00-0.30)
[2018-11-28 15:36] LABS: ERYTHROCYTE SEDIMENTATION RATE 28 mm/hr (0-30)
[2018-11-28] MEDS ORDERED: NS 1,000 ML IV ONE (16:00)
[2018-11-28 16:10] LABS: ALBUMIN 2.9 GM/DL (3.2-5.2); BILIRUBIN,DIRECT 0.1 MG/DL (0.0-0.2); BILIRUBIN,TOTAL 0.4 MG/DL (0.2-1.0); TOTAL PROTEIN 6.1 GM/DL (6.4-8.2)
[2018-11-28] MEDS ORDERED: MORPHINE 4 MG/ML 1ML VIAL/SYRINGE (J2270) IV ONE (16:30)
[2018-11-28] MEDS ORDERED: OPTI4PAD XX (17:33)
[2018-11-28] MEDS ORDERED: SODIUM CHLORIDE 0.9% INJ 10 ML SYR IV PRN (18:00)
[2018-11-28 18:16] VITALS: BP 137/69
== END 2018-11-28 18:20 | disposition home or self-care (01) ==
LOC: M ED 12:24
DX: L89.609 Pressure ulcer of unspecified heel, unspecified stage (principal); L89.309 Pressure ulcer of unspecified buttock, unspecified stage; E86.0 Dehydration; C25.9 Malignant neoplasm of pancreas, unspecified; R53.1 Weakness; I10 Essential (primary) hypertension; E78.5 Hyperlipidemia, unspecified; Z87.19 Personal history of other diseases of the digestive system; E03.9 Hypothyroidism, unspecified; Z86.79 Personal history of other diseases of the circulatory system; Z88.8 Allergy status to other drugs, medicaments and biological substances; Z79.899 Other long term (current) drug therapy; Z79.82 Long term (current) use of aspirin
CPT/HCPCS: 80047; 80076; 82140; 82330; 83690; 85027; 85652; 86140; 96361; 96374; 99284; J2270

== ENCOUNTER → 2018-12-31 | Outpatient (CLI) | payer MEDICARE, OTHER ==
[~2018-12-31] MED LIST changes: +EMLA CREAM 5GM (LIDOCAINE/PRILOCAINE) As Ordered ONE; +GASTROGRAFIN SOLUTION 30ML (Q9963) As Ordered ONE; +ISOVUE-370 76% 100ML VIAL (Q9967) As Ordered ONE; +MORP1TAB21; +MORP20SO3 PO; +ONDA8TAB7; +OPTI4PAD XX; +PREG25CA PO; +PROC10TA4
--- NOTE | 2018-12-31 15:26 | REP ---
REASON: Pancreatic cancer. COMPARISON: 08/27/2018. CONTRAST: 100 mL Isovue 370. There is mediastinal and hilar adenopathy status quo. There are bilateral pleural effusions status quo. There is no pericardial effusion. There is a mass in the left subclavian region status quo. Bone window technique throughout the exam shows no evidence of significant change in the appearance of the osseous structures. Evaluation of the lung noel show three new spiculated nodules, two are in the right upper lobe, the anterior one measures 9 mm and the posterior one measures 1.4 cm. The new spiculated nodule in the left upper lobe measures 1.1 cm. Just posterior to that left upper lobe lesion there is a tiny asymmetric density which measures 7 mm. There are numerable other new spiculated nodules in the upper and lower lobes bilaterally. The largest is in the right middle lobe measuring approximately 2.3 cm. The bilateral pleural effusions are again causing compressive subsegmental atelectatic changes. IMPRESSION: 1. There is metastatic lung disease as described above. 2. Pleural effusions and related findings as described above. 3. Mediastinal and hilar adenopathy as described above. 4. Other findings as described above. Electronically Signed by Justo Escalera DO 12/31/2018 04:21 P
--- NOTE | 2018-12-31 15:36 | REP ---
HISTORY: Pancreatic carcinoma. COMPARISON: All priors reviewed, the latest 08/27/2018. CONTRAST: 100 mL Isovue-370. There is a large pancreatic mass with intrapancreatic ductal dilatation. The mass measures approximately. 3.7 x 4 x 4.2 cm. It has increased slightly in size from the latest prior. There is advanced intrapancreatic ductal dilatation, appears stable. There are innumerable peripancreatic lymph nodes, status quo. There is advanced retroperitoneal/periaortic adenopathy, some with calcifications, status quo. There is a small amount of ascites which has increased slightly from the prior exam. The liver and spleen are unchanged. The adrenal glands and kidneys are unchanged. The gallbladder is unchanged. There is no significant change in the appearance of the bowel loops. CT PELVIS: There is free pelvic fluid which has increased slightly from the prior exam. There is no evidence of pelvic sidewall adenopathy. There is no significant change in the appearance of the bowel loops. Bone window technique throughout the exam shows chronic osseous changes, status quo. Multiple blastic and some lytic lesions are seen in multiple thoracic and lumbar vertebral bodies. These are unchanged from the latest prior. IMPRESSION: Metastatic pancreatic carcinoma with related findings as described above. Electronically Signed by Justo Escalera DO 12/31/2018 04:22 P
== END ==
LOC: M RAD 12:27
PROVIDERS: ATTEND Physician Assistant
DX: C25.9 Malignant neoplasm of pancreas, unspecified (principal); C78.00 Secondary malignant neoplasm of unspecified lung
CPT/HCPCS: 71260; 74177; Q9963; Q9967